=== PATIENT | male | born 1980 | race Caucasian/White ===

== ENCOUNTER 2020-12-25 10:06 | Day surgery (SDC) | payer MEDICARE, OTHER ==
[2020-12-19 15:45] LABS: BASOPHILS # (AUTO) 0.1 X10'3 (0-0.2); BASOPHILS % (AUTO) 1.1 % (0-1); EOSINOPHILS # (AUTO) 0.2 X10'3 (0-0.9); EOSINOPHILS % (AUTO) 2.5 % (0-6); LYMPHOCYTES # (AUTO) 2.4 X10'3 (1.1-4.8); LYMPHOCYTES % (AUTO) 27.5 % (21-51); MEAN CORPUSCULAR HEMOGLOBIN 31.9 PG (27.0-31.0); MEAN CORPUSCULAR HGB CONC 34.9 g/dL (33.0-36.5); MEAN CORPUSCULAR VOLUME 91.4 FL (78-98); MEAN PLATELET VOLUME 8.2 FL (7.4-10.4); MONOCYTES # (AUTO) 0.7 X10'3 (0-0.9); MONOCYTES % (AUTO) 7.6 % (2-12); NEUTROPHILS # (AUTO) 5.4 X10'3 (1.8-7.7); NEUTROPHILS % (AUTO) 61.3 % (42-75); PRE OP HEMATOCRIT 44.7 % (42.0-52.0); PRE OP HEMOGLOBIN 15.6 g/dL (14.0-17.9); PRE OP PLATELET COUNT 279 X10'3 (140-440); RED BLOOD COUNT 4.89 X10'6 (4.70-6.10); RED CELL DISTRIBUTION WIDTH 12.4 % (11.5-14.5)
[2020-12-19 15:54] LABS: PRE OP INR 1.1 INR; PRE OP PROTIME 11.1 SECONDS (9.0-12.0)
[2020-12-19 15:55] LABS: ALBUMIN 4.1 G/DL (3.4-5.0); ALBUMIN/GLOBULIN RATIO 1.1 (1.1-1.5); ALKALINE PHOSPHATASE 65 IU/L (46-116); BLOOD UREA NITROGEN 12 MG/DL (7-18); BUN/CREATININE RATIO 11.8 (5.4-32.0); CALCIUM 9.3 MG/DL (8.5-10.1); CHLORIDE 106 MMOL/L (99-107); CREATININE 1.02 MG/DL (0.60-1.10); PRE OP ALT 45 U/L (30-65); PRE OP ANION GAP 9 (8-16); PRE OP AST 24 U/L (10-37); PRE OP BILIRUB, TOTAL 0.3 MG/DL (0.0-1.0); PRE OP GLUCOSE 95 MG/DL (70-104); PRE OP POTASSIUM 3.8 MMOL/L (3.4-5.1); PRE OP SODIUM 140 MMOL/L (135-145); TOTAL PROTEIN 7.9 G/DL (6.4-8.2); eGFR 80 ML/MIN
[2020-12-25] VITALS (8 sets, daily range): BP systolic 138–175; BP diastolic 78–94
[~2020-12-25] VITALS: Ht 185.4 cm; Wt 107.8 kg
[~2020-12-25 10:06] MED LIST: LIDOcaine 1% W/epiNEPHrine 1:200,000 10ml vial ONE; NO HOME MEDS; cefTAZidime 1gm inj ONE; cocaine 4% topical solution 4ml bottle ONE; famotidine 20mg tablet PO ONE; methylPREDNISolone acetate 80mg/ml inj**IM only ONE; mupirocin 2% ointment 22GM ONE; oxymetazoline 15 ML nasal spray NS ONE; ringers solution, lacted 1,000 ML IV SCH
[2020-12-25] MEDS ORDERED: sevoflurane 250ml liquid IH ONE (12:36)
[2020-12-25] MEDS ORDERED: hydrALAZINE 20mg/ml inj. IV PRN (12:40)
[2020-12-25] MEDS ORDERED: meperidine/PF 25mg/ml syringe IV PRN ×2 (12:40)
[2020-12-25] MEDS ORDERED: acetaminophen 1,000mg/100ml IV 100 ML IV PRN (12:40)
[2020-12-25] MEDS ORDERED: proCHLORperazine 10 MG/2 ml inj IV PRN (12:40)
[2020-12-25] MEDS ORDERED: morphine 2 MG/ML inj. syringe IV PRN (12:40)
[2020-12-25] MEDS ORDERED: labetalol 20mg/4ml (5mg/ml) syringe IV PRN (12:40)
[2020-12-25] MEDS ORDERED: morphine 4 MG/ML inj SYRINge IV PRN (12:40)
[2020-12-25] MEDS ORDERED: ringers solution, lacted 1,000 ML IV SCH (12:40)
[2020-12-25] MEDS ORDERED: ondansetron/PF 4mg/2ml inj IV PRN (12:40)
[2020-12-25] MEDS ORDERED: fentaNYL/PF 50MCG/1 ML 2ML syringe ONE (12:44)
[2020-12-25] MEDS ORDERED: midazolam 1 mg/ML 2ml injection ONE (12:47)
[2020-12-25] MEDS ORDERED: dexamethasone sod phosphate 4mg/ml inj. ONE (13:05)
[2020-12-25] MEDS ORDERED: propofol inj 20 ML IV ONE (13:05)
[2020-12-25] MEDS ORDERED: ondansetron/PF 4mg/2ml inj ONE (13:05)
[2020-12-25] MEDS ORDERED: LIDOcaine 2% (20mg/ml) 5ml vial ONE (13:05)
[2020-12-25] MEDS ORDERED: morphine 10mg/ml inj. ONE (14:29)
--- NOTE | 2020-12-25 14:45 | NUR ---
Received from OR via BED , accompanied by Anesthesiologist DR hobbs and report given by Anesthesiolgist. PATIENT WAKING UP, DENIES PAIN, V/S WNL, CSM INTACT, 20G PIV TO RUE and right foot, COTTONOID PACKING TO BILATERALLY SINUSES WITH NO ACTIVE DRAINAGE VISABLE AT THIS TIME
[2020-12-25] MEDS: meperidine/PF 25mg/ml syringe IV PRN ×2 (14:49→15:15)
[2020-12-25] MEDS ORDERED: salt irrigation nasal spray 45 ML SPRAY NS PRN (15:10)
--- NOTE | 2020-12-25 15:45 | NUR ---
PATIENT A&OX4, DENIES PAIN, V/S WNL, CSM INTACT, 20G PIV TO RUE AND RLE D/C , COTTONOID PACKING TO BILATERALLY SINUSES D/C ORDERED BY DR RIVERA WITH MINIMAL DRAINAGE. I HAVE REVIEWED D/C INSTRUCTIONS WITH PATIENT AND FAMILY AND THEY HAVE VERBALIZED UNDERSTANDING. PATIENT D/C HOME WITH ALL BELONGINGS AND FAMILY GAVE TRANSPORT HOME.
== END 2020-12-25 15:45 | disposition home or self-care (01) ==
LOC: PAS 10:06
PROVIDERS: ATTEND Otolaryngology
DX: J34.2 Deviated nasal septum (principal); J34.3 Hypertrophy of nasal turbinates; J32.8 Other chronic sinusitis; J34.89 Other specified disorders of nose and nasal sinuses; J33.8 Other polyp of sinus; I47.1 Supraventricular tachycardia; G47.33 Obstructive sleep apnea (adult) (pediatric); G43.909 Migraine, unspecified, not intractable, without status migrainosus; Z98.890 Other specified postprocedural states; Z79.899 Other long term (current) drug therapy; Z79.01 Long term (current) use of anticoagulants; Z72.89 Other problems related to lifestyle; Z87.891 Personal history of nicotine dependence; Z20.822 Contact with and (suspected) exposure to COVID-19
CPT/HCPCS: 30140; 30520; 31253; 31259; 31267; 36415; 61782; 80053; 82948; 85025; 85576; 85610; 85730; 87070; 87075; 87077; 87426; 87635; 93005; A6402; C9250; J0713; J1040; J1100; J2001; J2175; J2250; J2270; J2405; J2704; J3010; J7040; J7120; 88304; 88311; A4618; A7000